=== PATIENT | male | born 1960 | race Caucasian/White ===

== ENCOUNTER 2023-05-02 19:53 | Observation (INO) ==
[2023-05-02 20:27] LABS: ABS Eosinophils 0.1 10^3/uL (0.0-0.5); ABS Lymphocytes 1.7 10^3/uL (1.0-4.8); ABS Monocytes 0.8 10^3/uL (0.0-1.1); ABS Neutrophils 3.9 10^3/uL (1.5-7.6); Eosinophil % 1.8 %; Hematocrit 39.3 % (38-53); Hemoglobin 13.4 g/dL (13.2-16.3); Lymphocyte % 26.2 %; Mean Corpuscular Hemoglobin 31.8 pg (27-33); Mean Corpuscular Hgb Conc 34.1 g/dL (31-36); Mean Corpuscular Volume 93.1 fL (80-97); Mean Platelet Volume 9.2 fL (7.5-11.2); Nucleated Red Blood Cells % 0.1 %/100WBC (0.0-0.8); Platelet Count 154 10^3/uL (150-450); Red Blood Count 4.23 10^6/uL (4.06-5.63); Red Cell Distribution Width 13.3 % (12-17); White Blood Count 6.5 10^3/uL (3.6-10.2)
[2023-05-02 20:39] LABS: INR 0.96 (0.83-1.13)
[2023-05-02 21:21] LABS: Albumin 4.4 g/dL (3.2-5.2); Albumin/Globulin Ratio 1.7 (1-3); Calcium 9.3 mg/dL (8.6-10.3); Creatinine, Serum 0.88 mg/dL (0.67-1.17); Globulin 2.6 g/dL (2-4); Potassium 4.1 mmol/L (3.5-5.0); Total Bilirubin 0.5 mg/dL (0.2-1.0); eGFR CKD-EPI 96.6 (>60)
[2023-05-02 22:20] LABS: High Sensitivity Troponin 1 Hr < 3 pg/mL (<20)
[2023-05-03] MEDS ORDERED: EMTRICITABINE TENOFOVIR ALAFEN PO SCH (09:00)
[2023-05-03] MEDS ORDERED: Sulfur Hexaflouride MICROSPHR 25 MG VIAL ONE (13:05)
[2023-05-03 15:32] VITALS: BP 140/81
== END 2023-05-03 15:33 | disposition home or self-care (01) ==
LOC: EDHOLD 19:53 → ED 19:53 → EDHOLD 05-03 15:32
PROVIDERS: ADMIT Internal Medicine; ATTEND Internal Medicine